=== PATIENT | female | born 1970 | race Caucasian/White ===

== ENCOUNTER 2018-06-13 07:18 | Day surgery (SDC) | payer BC ==
--- NOTE | 2018-06-08 15:49 | RAD REPORT ---
EXAM DESCRIPTION: RAD - Chest Pa And Lat (2 Views) - 06/08/2018 3:42 pm CLINICAL HISTORY: Preop chest, pending cardiac catheterization COMPARISON: February 2016 TECHNIQUE: PA and lateral views of the chest were obtained. FINDINGS: The lungs are clear of an acute process. No failure or volume overload. Lung markings are similar to comparison. Heart size is normal and central vasculature is within normal limits. No ple ural effusion or pneumothorax seen. No acute bony finding noted. No aortic abnormality. IMPRESSION: No acute cardiopulmonary process. No significant interval change.
[2018-06-08 16:35] LABS: Absolute Lymphocytes (CBC) 1.8 K/uL (0.7-4.9); Absolute Monocytes 0.4 K/uL (0.1-1.3); Absolute Neutrophil 2.2 K/uL (1.8-8.0); Basophils % 2.6 % (0-1.3); Eosinophils % 1.6 % (0-4.4); Hematocrit 40.8 % (36.0-45.0); Lymphocytes % 39.4 % (15.3-44.8); MPV 7.8 fL (7.6-11.3); Monocytes % 8.5 % (3.3-12.3); RBC Red Blood Cell Count 4.49 M/uL (3.86-4.86)
[2018-06-08 16:40] LABS: Protime INR 0.9
[2018-06-08 16:52] LABS: Potassium 3.9 mmol/L (3.5-5.1)
--- OUTSIDE RECORDS SUMMARY | 2018-06-13 07:20 | XMS REPORT ---
:1970 Author Organization eClinicalWorks Care Team Providers Name Role Phone [facility] Provider Role Unavailable Allergies No Known Allergies Problems Problem Type Condition Code Onset Dates Condition Status Problem Current moderate episode of major F32.1 Active depressive disorder without prior episode Problem Seasonal allergic rhinitis, J30.2 Active unspecified trigger Problem H/O abnormal cervical Papanicolaou Z87.898 Active smear Problem Memory changes R41.3 Active Problem Anxiety F41.9 Active Problem Psoriasis L40.9 Active Medications No Known Medications Results No Known Results Summary Purpose eClinicalWorks Submission
--- OUTSIDE RECORDS SUMMARY | 2018-06-13 07:20 | XMS REPORT ---
:1970 Author Organization [employer] Care Team Providers Name Role Phone WilcoxAryh Provider Role Unavailable Allergies No Known Allergies Problems Problem Type Condition Code Onset Dates Condition Status Assessment Seasonal allergic rhinitis, J30.2 Active unspecified trigger Assessment Psoriasis L40.9 Active Problem Psoriasis L40.9 Active Problem Memory changes R41.3 Active Problem Anxiety F41.9 Active Assessment Current moderate episode of major F32.1 Active depressive disorder without prior episode Assessment Anxiety F41.9 Active Problem Current moderate episode of major F32.1 Active depressive disorder without prior episode Problem Seasonal allergic rhinitis, J30.2 Active unspecified trigger Medications Medication Code Code Instructions Start End Status Dosage System Date Date Escitalopram [facility] 01609937603 20 MG Orally Active 1 tablet Oxalate Once a day BusPIRone HCl [facility] 00765073286 5 MG Orally Active 1 tablet Twice a day Results No Known Results Summary Purpose eClinicalWorks Submission
--- OUTSIDE RECORDS SUMMARY | 2018-06-13 07:20 | XMS REPORT ---
:1970 Author Organization eClinicalWorks Care Team Providers Name Role Phone Judy Feliciano Provider Role Unavailable Allergies, Adverse Reactions, Alerts Substance Reaction Event Type Gabapentin Info Not Available Drug Allergy Cyclobenzaprine HCl Info Not Available Drug Allergy Ciprofloxacin sweating Drug Allergy Baclofen itching,dizzy Drug Allergy Problems Problem Type Condition Code Onset Dates Condition Status Assessment H/O abnormal cervical Papanicolaou Z87.898 Active smear Assessment Yeast dermatitis B37.2 Active Problem Current moderate episode of major F32.1 Active depressive disorder without prior episode Problem Seasonal allergic rhinitis, J30.2 Active unspecified trigger Problem H/O abnormal cervical Papanicolaou Z87.898 Active smear Problem Memory changes R41.3 Active Assessment Routine gynecological examination Z01.419 Active Problem Anxiety F41.9 Active Problem Psoriasis L40.9 Active Medications Medication Code Code Instructions Start End Status Dosage System Date Date Escitalopram [facility] 08081496944 20 MG Orally Active 1 tablet Oxalate Once a day BusPIRone HCl [facility] 91378139152 5 MG Orally Active 1 tablet Twice a day Results No Known Results Summary Purpose eClinicalWorks Submission
--- OUTSIDE RECORDS SUMMARY | 2018-06-13 07:20 | XMS REPORT ---
:1970 Author Organization eClinicalWorks Care Team Providers Name Role Phone Bryce Wilcox Provider Role Unavailable Allergies No Known Allergies Problems Problem Type Condition Code Onset Dates Condition Status Assessment Current moderate episode of major F32.1 Active depressive disorder without prior episode Problem Current moderate episode of major F32.1 Active depressive disorder without prior episode Problem Seasonal allergic rhinitis, J30.2 Active unspecified trigger Problem H/O abnormal cervical Papanicolaou Z87.898 Active smear Problem Memory changes R41.3 Active Problem Anxiety F41.9 Active Problem Psoriasis L40.9 Active Medications Medication Code Code Instructions Start End Status Dosage System Date Date Escitalopram [facility] 47131966038 20 MG Orally Active 1 tablet Oxalate Once a day Results No Known Results Summary Purpose eClinicalWorks Submission
[2018-06-13] MEDS ORDERED: NA CHLORIDE 0.9% 500 ML ONE (07:56)
[2018-06-13] MEDS ORDERED: ATROPINE SULF 1 MG/10 ML SYR IV ONE (09:02)
[2018-06-13] MEDS ORDERED: HEPA 1000U/500MLS 1,000 UNIT/500 ML BAG IV ONE (09:02)
[2018-06-13] MEDS ORDERED: MIDAZOLAM HCL 2 MG/2 ML INJ ONE ×2 (09:02→09:12)
[2018-06-13] MEDS ORDERED: FENTANYL CITR 100 MCG/2 ML ONE (09:02)
[2018-06-13] MEDS ORDERED: NA CHLORIDE 0.9% 0 ML ONE (09:02)
[2018-06-13] MEDS ORDERED: LIDOCAINE 1% MPF 30 ML VIAL ONE (09:02)
[2018-06-13 11:41] VITALS: BP 112/63; TEMP 98; O2SAT 100
--- NOTE | 2018-06-13 12:22 | OP ---
Date of Procedure: 06/13/2018 Surgeon: Aravind Strickland MD Chief Digital Officer: Roel Daugherty. Total conscious sedation was 30 minutes. Procedure: Left heart catheterization and selective coronary arteriogram. Indication: Abnormal stress test and chest pain. Ms. Quiros is 48. Had chest pain, positive stress test. Admitted today as an outpatient to the [facility]. Prepped and draped in the routine sterile fashion. Given 2 mg of Versed and 50 mg of fenta nyl for IV sedation. 6-Bahraini sheath introduced in the right common femoral artery. Angiography the re was normal. Angio-Seal was used to close the case. 6-B[place]raini Erika catheter was used to cannula te the coronary artery, left main and right main. She had normal coronaries. No significant atheros clerosis. 6-[place]i sheath catheters were used. No complications. Blood Loss: 5 cc. Postoperative Diagnoses: Abnormal Cardiolite. Normal coronaries. Plan: Plan is to continue medical therapy. She will go home after 2 hours of bedrest. I will see h er in the office in 2 weeks. ION/SYLVIA Voice ID: [id number] Report ID: [id number]
== END 2018-06-13 11:35 | disposition home or self-care (01) ==
LOC: CCL 07:18
DX: R94.39 Abnormal result of other cardiovascular function study (principal); F41.9 Anxiety disorder, unspecified; Z82.49 Family history of ischemic heart disease and other diseases of the circulatory system; Z87.891 Personal history of nicotine dependence; Z79.899 Other long term (current) drug therapy
CPT/HCPCS: 36415; 71046; 80048; 84703; 85025; 85610; 85730; 93454; C1760; C1893; J0583; J2250; J3010

== ENCOUNTER 2020-10-06 08:06 | Day surgery (SDC) | payer BC ==
[2020-10-06 08:24] LABS: Specific Gravity <= 1.005 (1.005-1.030)
[2020-10-06] MEDS ORDERED: Ringers Lactate 1,000 ML IV ONE (08:50)
[2020-10-06] MEDS ORDERED: propofoL 200 MG/20 ML VIAL IV ONE ×3 (09:12→09:33)
[2020-10-06] MEDS ORDERED: LIDOCAINE 1% MPF 5 ML VIAL ONE (09:12)
[2020-10-06] MEDS ORDERED: MIDAZOLAM HCL 2 MG/2 ML INJ ONE (09:34)
[2020-10-06 10:24] VITALS: TEMP 97.6
[2020-10-06 10:25] VITALS: BP 102/56; O2SAT 100
== END 2020-10-06 10:20 | disposition home or self-care (01) ==
LOC: OR 08:06
PROVIDERS: ATTEND Surgery
PROC: 0DJD8ZZ Inspection of Lower Intestinal Tract, Via Natural or Artificial Opening Endoscopic (ICD-10-PCS; principal; 2020-10-06 09:15)
DX: K57.30 Diverticulosis of large intestine without perforation or abscess without bleeding (principal); F41.9 Anxiety disorder, unspecified; L40.9 Psoriasis, unspecified; K64.4 Residual hemorrhoidal skin tags; K64.8 Other hemorrhoids; Z20.822 Contact with and (suspected) exposure to COVID-19
CPT/HCPCS: 36415; 84703; 81025; 45378; U0003 ×2; J2704 ×3; J2250; J7120

== ENCOUNTER → 2023-07-11 | Emergency (ER) | payer OTHER, BC ==
[~2023-07-11] MED LIST: ACETAMINOPHEN 500 MG TAB ONE; IBUPROFEN 400 MG TAB ONE
--- OUTSIDE RECORDS SUMMARY | 2023-07-11 20:00 | XMS REPORT | Continuity of Care Document ---
Author Name Unknown Address [address] [place] [address] [facility] Address [address] [facility] [address] [place] [address] Care Team Providers Care Stock Buyer Name Role Phone Bryce Wilcox Attending Clinician Unavailable [email or web address] Attending Clinician Unavaila ble [email or web address] Admitting Clinician Unavaila ble Payers Payer Name Policy Type Policy Number Effective Date Expirati on Date Source [place] [id number] 2017 00:00:00 [facility] 6 [id number] 2017 00:00:00 [facility] Problems Condition Name Condition Details Condition Category Status Onset Date Resolution Date Last Treatment Date Treating Clinician Comments Source History of loop electrosur gical excision procedure History of Loop Electrosur gical Excision Procedure Problem Active 08-02 00:00: 00 [facility] [id number] Body mass index [BMI] 31.0-31.9, adult Problem [facility] [id number] Grieving Problem Commo n [facility] [id number] Other obesity due to excess calories Problem [facility] [id number] Panic attack Problem Common [facility] [id number] Leukopenia , unspecifie d type Problem [facility] [id number] Seasonal allergic rhinitis, unspecifie d trigger Problem [facility] [id number] Psoriasis, unspecifie d Problem [facility] [id number] Current moderate episode of major depressive disorder without prior episode Problem [facility] [id number] Memory changes Problem [facility] [id number] Anxiety Problem [facility] [id number] Mixed hyperlipid emia Problem [facility] [id number] Non-season al allergic rhinitis, unspecifie d trigger Problem [facility] 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, cervical region Problem [facility] [id number] Bilateral hearing loss, unspecifie d hearing loss type Problem [facility] [id number] JOHN (obstructi ve sleep apnea) Problem [facility] [id number] H/O abnormal cervical Papanicola ou smear Problem [facility] Osteophyte of bone Osteophyte of vertebrae Problem [facility] [id number] Daytime somnolence Problem [facility] [id number] Repetitive intrusions of sleep Problem [facility] Hearing loss Hearing loss, bilateral Problem [facility] Allergies, Adverse Reactions, Alerts Allergy Name Allergy Type Status Severity Reaction(s) Onset Date Inactive Date Treating Clinician Comments Source baclofen baclofen Active itching,dizz y [facility] cycloben zaprine cycloben zaprine Active breathing difficulty [facility] 9041 Drug allergy Active sweating [facility] gabapent in gabapent in Active breathing difficulty [facility] Social History Social Habit Start Date Stop Date Quantity Comments Source History of Tobacco Use [facility] Sex Assigned At [facility] Smoking Status Start Date Stop Date Source Never Smoker [facility] Former Smoker 2023-03-23 00:00:00 2023-03-23 00:00:00 [facility] Medications Ordered Medication Name Filled Medication Name Start Date Stop Date Current Medication? Ordering Clinician Indication Dosage Frequency Signature (SIG) Comments Components Source ALPRAZolam 0.25 MG ALPRAZolam 0.25 MG 2022-06 0- 00:00: 00 No 1{table t} ALPRAZolam 0.25 MG ALPRAZolam 0.25 MG ALPRAZolam 0.25 MG 2022-06 0 00:00: 00 No 1{table t} ALPRAZolam 0.25 MG ALPRAZolam 0.25 MG ALPRAZolam 0.25 MG 2022-06 0 00:00: 00 No 1{table t} ALPRAZolam 0.25 MG ALPRAZolam 0.25 MG ALPRAZolam 0.25 MG 2022-06 0 00:00: 00 No 1{table t} ALPRAZolam 0.25 MG ALPRAZolam 0.25 MG ALPRAZolam 0.25 MG 07-26 00:00: 00 No 1{table t} ALPRAZolam 0.25 MG Kenalog (Triamcinol one) Kenalog (Triamcinol one) 2021-06 0-04 00:00: 00 No 40mg [facility] Kenalog (Triamcinol one) Kenalog (Triamcinol one) 2021-06 0-04 00:00: 00 No 40mg [facility] Kenalog (Triamcinol one) Kenalog (Triamcinol one) 2021-06 0-04 00:00: 00 No 40mg [facility] Kenalog (Triamcinol one) Kenalog (Triamcinol one) 2021-06 0-04 00:00: 00 No 40mg [facility] Kenalog (Triamcinol one) Kenalog (Triamcinol one) 2021-06 0-04 00:00: 00 No 40mg [facility] Kenalog (Triamcinol one) Kenalog (Triamcinol one) 2021-06 0-04 00:00: 00 No 40mg [facility] Kenalog (Triamcinol one) Kenalog (Triamcinol one) 2021-06 0-04 00:00: 00 No [facility]mg [facility] Kenalog (Triamcinol one) Kenalog (Triamcinol one) 2021-06 0-04 00:00: 00 No 40mg Common [facility] Kenalog (Triamcinol one) Kenalog (Triamcinol one) 2021-06 0-04 00:00: 00 No 40mg Common [facility] Kenalog (Triamcinol one) Kenalog (Triamcinol one) 2021-06 0-04 00:00: 00 No 40mg [facility] Kenalog (Triamcinol one) Kenalog (Triamcinol one) 2021-06 0-04 00:00: 00 No 40mg [facility] Kenalog (Triamcinol one) Kenalog (Triamcinol one) 2021-06 0-04 00:00: 00 No 40mg Common [facility] Kenalog (Triamcinol one) Kenalog (Triamcinol one) 2021-06 0-04 00:00: 00 No 40mg [facility] ALPRAZolam 0.25 MG ALPRAZolam 0.25 MG 815 00:00: 00 No 1{table t} ALPRAZolam 0.25 MG ALPRAZolam 0.25 MG ALPRAZolam 0.25 MG 8 00:00: 00 No 1{table t} ALPRAZolam 0.25 MG Macrobid 100 MG Macrobid 100 MG 2020-06 0-12 00:00: 00 04-12 00:00 :00 No BID Macrobid 100 MG Macrobid 100 MG Macrobid 100 MG 2020-06 0-12 00:00: 00 04-12 00:00 :00 No BID Macrobid 100 MG Lorazepam Lorazepam 2018-06 00:00: 00 Yes Bryce Wilcox 1 tablet prior to MRI [facility] LORazepam 1 MG LORazepam 1 MG 2018-06 00:00: 00 No QD LORazepam 1 MG LORazepam 1 MG LORazepam 1 MG 2018-06 00:00: 00 No QD LORazepam 1 MG LORazepam 1 MG LORazepam 1 MG 2018-06 00:00: 00 No QD LORazepam 1 MG LORazepam 1 MG LORazepam 1 MG 2018-06 00:00: 00 No QD LORazepam 1 MG LORazepam 1 MG 2018-06 00:00: 00 No QD LORazepam 1 MG LORazepam 1 MG LORazepam 1 MG 2018-06 00:00: 00 No QD LORazepam 1 MG LORazepam 1 MG LORazepam 1 MG 2018-06 00:00: 00 No QD LORazepam 1 MG LORazepam 1 MG LORazepam 1 MG 2018-06 00:00: 00 No QD LORazepam 1 MG LORazepam 1 MG LORazepam 1 MG 2018-06 00:00: 00 No QD LORazepam 1 MG LORazepam 1 MG LORazepam 1 MG 2018-06 00:00: 00 No QD LORazepam 1 MG LORazepam 1 MG LORazepam 1 MG 2018-06 00:00: 00 No QD LORazepam 1 MG LORazepam 1 MG LORazepam 1 MG 2018-06 00:00: 00 No QD LORazepam 1 MG LORazepam 1 MG LORazepam 1 MG 2018-06 00:00: 00 No QD LORazepam 1 MG LORazepam 1 MG LORazepam 1 MG 2018-06 00:00: 00 No QD LORazepam 1 MG LORazepam 1 MG LORazepam 1 MG 2018-06 00:00: 00 No QD LORazepam 1 MG LORazepam 1 MG LORazepam 1 MG 2018-06 00:00: 00 No QD LORazepam 1 MG LORazepam 1 MG LORazepam 1 MG 2018-06 00:00: 00 No QD LORazepam 1 MG LORazepam 1 MG LORazepam 1 MG 2018-06 00:00: 00 No QD LORazepam 1 MG LORazepam 1 MG LORazepam 1 MG 2018-06 00:00: 00 No QD LORazepam 1 MG LORazepam 1 MG LORazepam 1 MG 2018-06 00:00: 00 No QD LORazepam 1 MG LORazepam 1 MG LORazepam 1 MG 2018-06 00:00: 00 No QD LORazepam 1 MG LORazepam 1 MG LORazepam 1 MG 2018-06 00:00: 00 No QD LORazepam 1 MG LORazepam 1 MG LORazepam 1 MG 2018-06 00:00: 00 No QD LORazepam 1 MG LORazepam 1 MG LORazepam 1 MG 2018-06 00:00: 00 No QD LORazepam 1 MG Kenalog (Triamcinol one) Kenalog (Triamcinol one) 2018-06 00:00: 00 No 40mg [facility] Kenalog (Triamcinol one) Kenalog (Triamcinol one) 2018-06 00:00: 00 No 40mg [facility] Kenalog (Triamcinol one) Kenalog (Triamcinol one) 2018-06 00:00: 00 No 40mg [facility] Kenalog (Triamcinol one) Kenalog (Triamcinol one) 2018-06 00:00: 00 No 40mg [facility] Kenalog (Triamcinol one) Kenalog (Triamcinol one) 2018-06 00:00: 00 No 40mg [facility] Kenalog (Triamcinol one) Kenalog (Triamcinol one) 2018-06 00:00: 00 No 40mg [facility] Kenalog (Triamcinol one) Kenalog (Triamcinol one) 2018-06 0 00:00: 00 No 40mg [facility] Kenalog (Triamcinol one) Kenalog (Triamcinol one) 2018-06 00:00: 00 No 40mg [facility] Kenalog (Triamcinol one) Kenalog (Triamcinol one) 2018-06 00:00: 00 No 40mg [facility] Kenalog (Triamcinol one) Kenalog (Triamcinol one) 2018-06 0 00:00: 00 No 40mg [facility] Kenalog (Triamcinol one) Kenalog (Triamcinol one) 2018-06 00:00: 00 No 40mg [facility] Kenalog (Triamcinol one) Kenalog (Triamcinol one) 2018-06 00:00: 00 No 40mg [facility] Kenalog (Triamcinol one) Kenalog (Triamcinol one) 2018-06 00:00: 00 No 40mg [facility] Kenalog (Triamcinol one) Kenalog (Triamcinol one) 2018-06 00:00: 00 No 40mg [facility] Kenalog (Triamcinol one) Kenalog (Triamcinol one) 2018-06 00:00: 00 No 40mg [facility] Kenalog (Triamcinol one) Kenalog (Triamcinol one) 2018-06 00:00: 00 No 40mg [facility] Kenalog (Triamcinol one) Kenalog (Triamcinol one) 2018-06 00:00: 00 No 40mg [facility] Kenalog (Triamcinol one) Kenalog (Triamcinol one) 2018-06 00:00: 00 No 40mg [facility] Kenalog (Triamcinol one) Kenalog (Triamcinol one) 2018-06 00:00: 00 No 40mg [facility] Humira Humira Yes Bryce Wilcox as directed [facility] Escitalopra m Oxalate Escitalopra m Oxalate Yes Bryce Wilcox 1 tablet [facility] Azithromyci n Azithromyci n No Azithromyc in Humira 10 MG/0.2ML Humira 10 MG/0.2ML No Humira 10 MG/0.2ML Fluzone Quadrivalen t Fluzone Quadrivalen t No Fluzone Quadrivale nt Fluocinonid e Fluocinonid e No Fluocinoni de busPIRone HCl 10 MG busPIRone HCl 10 MG No 1{table t} BID busPIRone HCl 10 MG Escitalopra m Oxalate 20 MG Escitalopra m Oxalate 20 MG No 1{table t} QD Escitalopr am Oxalate 20 MG Doxycycline Hyclate Doxycycline Hyclate No Doxycyclin e Hyclate Doxycycline Hyclate Doxycycline Hyclate No Doxycyclin e Hyclate Escitalopra m Oxalate 20 MG Escitalopra m Oxalate 20 MG No 1{table t} QD Escitalopr am Oxalate 20 MG busPIRone HCl 10 MG busPIRone HCl 10 MG No 1{table t} BID busPIRone HCl 10 MG Fluzone Quadrivalen t Fluzone Quadrivalen t No Fluzone Quadrivale nt Azithromyci n Azithromyci n No Azithromyc in Fluocinonid e Fluocinonid e No Fluocinoni de Humira 10 MG/0.2ML Humira 10 MG/0.2ML No Humira 10 MG/0.2ML Doxycycline Hyclate Doxycycline Hyclate No Doxycyclin e Hyclate Escitalopra m Oxalate 20 MG Escitalopra m Oxalate 20 MG No 1{table t} QD Escitalopr am Oxalate 20 MG busPIRone HCl 10 MG busPIRone HCl 10 MG No 1{table t} BID busPIRone HCl 10 MG Fluzone Quadrivalen t Fluzone Quadrivalen t No Fluzone Quadrivale nt Azithromyci n Azithromyci n No Azithromyc in Fluocinonid e Fluocinonid e No Fluocinoni de Humira 10 MG/0.2ML Humira 10 MG/0.2ML No Humira 10 MG/0.2ML Doxycycline Hyclate Doxycycline Hyclate No Humira 10 MG/0.2ML Humira 10 MG/0.2ML No Escitalopra m Oxalate 20 MG Escitalopra m Oxalate 20 MG No 1{table t} QD Fluzone Quadrivalen t Fluzone Quadrivalen t No Azithromyci n Azithromyci n No Fluocinonid e Fluocinonid e No busPIRone HCl 10 MG busPIRone HCl 10 MG No 1{table t} BID Fluzone Quadrivalen t Fluzone Quadrivalen t No Fluzone Quadrivale nt Fluocinonid e Fluocinonid e No Fluocinoni de Humira 10 MG/0.2ML Humira 10 MG/0.2ML No Humira 10 MG/0.2ML Doxycycline Hyclate Doxycycline Hyclate No Doxycyclin e Hyclate Escitalopra m Oxalate 20 MG Escitalopra m Oxalate 20 MG No 1{table t} QD Escitalopr am Oxalate 20 MG Azithromyci n Azithromyci n No Azithromyc in busPIRone HCl 10 MG busPIRone HCl 10 MG No 1{table t} BID busPIRone HCl 10 MG Azithromyci n Azithromyci n No Azithromyc in Fluocinonid e Fluocinonid e No Fluocinoni de Benzonatate 200 MG Benzonatate 200 MG No 1{capsu le} TID Benzonatat e 200 MG Humira 10 MG/0.2ML Humira 10 MG/0.2ML No Humira 10 MG/0.2ML Escitalopra m Oxalate 20 MG Escitalopra m Oxalate 20 MG No 1{table t} QD Escitalopr am Oxalate 20 MG Fluzone Quadrivalen t Fluzone Quadrivalen t No Fluzone Quadrivale nt Doxycycline Hyclate Doxycycline Hyclate No Doxycyclin e Hyclate Azithromyci n 250 MG Azithromyci n 250 MG No QD Azithromyc in 250 MG busPIRone HCl 10 MG busPIRone HCl 10 MG No 1{table t} BID busPIRone HCl 10 MG Azithromyci n Azithromyci n No Azithromyc in Fluocinonid e Fluocinonid e No Fluocinoni de Benzonatate 200 MG Benzonatate 200 MG No 1{capsu le} TID Benzonatat e 200 MG Humira 10 MG/0.2ML Humira 10 MG/0.2ML No Humira 10 MG/0.2ML Escitalopra m Oxalate 20 MG Escitalopra m Oxalate 20 MG No 1{table t} QD Escitalopr am Oxalate 20 MG Fluzone Quadrivalen t Fluzone Quadrivalen t No Fluzone Quadrivale nt Doxycycline Hyclate Doxycycline Hyclate No Doxycyclin e Hyclate Azithromyci n 250 MG Azithromyci n 250 MG No QD Azithromyc in 250 MG busPIRone HCl 10 MG busPIRone HCl 10 MG No 1{table t} BID busPIRone HCl 10 MG Humira 10 MG/0.2ML Humira 10 MG/0.2ML No Humira 10 MG/0.2ML Benzonatate 200 MG Benzonatate 200 MG No 1{capsu le} TID Benzonatat e 200 MG Fluocinonid e Fluocinonid e No Fluocinoni de Azithromyci n 250 MG Azithromyci n 250 MG No QD Azithromyc in 250 MG Escitalopra m Oxalate 20 MG Escitalopra m Oxalate 20 MG No 1{table t} QD Escitalopr am Oxalate 20 MG Doxycycline Hyclate Doxycycline Hyclate No Doxycyclin e Hyclate Azithromyci n Azithromyci n No Azithromyc in busPIRone HCl 10 MG busPIRone HCl 10 MG No 1{table t} BID busPIRone HCl 10 MG Fluzone Quadrivalen t Fluzone Quadrivalen t No Fluzone Quadrivale nt Humira 10 MG/0.2ML Humira 10 MG/0.2ML No Humira 10 MG/0.2ML Benzonatate 200 MG Benzonatate 200 MG No 1{capsu le} TID Benzonatat e 200 MG Fluocinonid e Fluocinonid e No Fluocinoni de Azithromyci n 250 MG Azithromyci n 250 MG No QD Azithromyc in 250 MG Escitalopra m Oxalate 20 MG Escitalopra m Oxalate 20 MG No 1{table t} QD Escitalopr am Oxalate 20 MG Doxycycline Hyclate Doxycycline Hyclate No Doxycyclin e Hyclate Azithromyci n Azithromyci n No Azithromyc in busPIRone HCl 10 MG busPIRone HCl 10 MG No 1{table t} BID busPIRone HCl 10 MG Fluzone Quadrivalen t Fluzone Quadrivalen t No Fluzone Quadrivale nt Humira 10 MG/0.2ML Humira 10 MG/0.2ML No Humira 10 MG/0.2ML Benzonatate 200 MG Benzonatate 200 MG No 1{capsu le} TID Benzonatat e 200 MG Fluocinonid e Fluocinonid e No Fluocinoni de Azithromyci n 250 MG Azithromyci n 250 MG No QD Azithromyc in 250 MG Escitalopra m Oxalate 20 MG Escitalopra m Oxalate 20 MG No 1{table t} QD Escitalopr am Oxalate 20 MG Doxycycline Hyclate Doxycycline Hyclate No Doxycyclin e Hyclate Azithromyci n Azithromyci n No Azithromyc in busPIRone HCl 10 MG busPIRone HCl 10 MG No 1{table t} BID busPIRone HCl 10 MG Fluzone Quadrivalen t Fluzone Quadrivalen t No Fluzone Quadrivale nt busPIRone HCl 10 MG busPIRone HCl 10 MG No 1{table t} BID busPIRone HCl 10 MG Fluocinonid e Fluocinonid e No Fluocinoni de Azithromyci n 250 MG Azithromyci n 250 MG No QD Azithromyc in 250 MG Benzonatate 200 MG Benzonatate 200 MG No 1{capsu le} TID Benzonatat e 200 MG Humira 10 MG/0.2ML Humira 10 MG/0.2ML No Humira 10 MG/0.2ML Doxycycline Hyclate Doxycycline Hyclate No Doxycyclin e Hyclate Escitalopra m Oxalate 20 MG Escitalopra m Oxalate 20 MG No Escitalopr am Oxalate 20 MG Escitalopra m Oxalate 20 MG Escitalopra m Oxalate 20 MG No 1{table t} QD Escitalopr am Oxalate 20 MG Azithromyci n Azithromyci n No Azithromyc in Fluzone Quadrivalen t Fluzone Quadrivalen t No Fluzone Quadrivale nt Humira 10 MG/0.2ML Humira 10 MG/0.2ML No Humira 10 MG/0.2ML Benzonatate 200 MG Benzonatate 200 MG No 1{capsu le} TID Benzonatat e 200 MG Escitalopra m Oxalate 20 MG Escitalopra m Oxalate 20 MG No 2{table t} QD Escitalopr am Oxalate 20 MG Escitalopra m Oxalate 20 MG Escitalopra m Oxalate 20 MG No Escitalopr am Oxalate 20 MG Fluocinonid e Fluocinonid e No Fluocinoni de Fluzone Quadrivalen t Fluzone Quadrivalen t No Fluzone Quadrivale nt ALPRAZolam 0.25 MG ALPRAZolam 0.25 MG No 1{table t} ALPRAZolam 0.25 MG Doxycycline Hyclate Doxycycline Hyclate No Doxycyclin e Hyclate busPIRone HCl 10 MG busPIRone HCl 10 MG No 1{table t} BID busPIRone HCl 10 MG Azithromyci n Azithromyci n No Azithromyc in Azithromyci n 250 MG Azithromyci n 250 MG No QD Azithromyc in 250 MG Humira 10 MG/0.2ML Humira 10 MG/0.2ML No Humira 10 MG/0.2ML Benzonatate 200 MG Benzonatate 200 MG No 1{capsu le} TID Benzonatat e 200 MG Escitalopra m Oxalate 20 MG Escitalopra m Oxalate 20 MG No 2{table t} QD Escitalopr am Oxalate 20 MG Escitalopra m Oxalate 20 MG Escitalopra m Oxalate 20 MG No Escitalopr am Oxalate 20 MG Fluocinonid e Fluocinonid e No Fluocinoni de Fluzone Quadrivalen t Fluzone Quadrivalen t No Fluzone Quadrivale nt ALPRAZolam 0.25 MG ALPRAZolam 0.25 MG No 1{table t} ALPRAZolam 0.25 MG Doxycycline Hyclate Doxycycline Hyclate No Doxycyclin e Hyclate busPIRone HCl 10 MG busPIRone HCl 10 MG No 1{table t} BID busPIRone HCl 10 MG Azithromyci n Azithromyci n No Azithromyc in Azithromyci n 250 MG Azithromyci n 250 MG No QD Azithromyc in 250 MG ALPRAZolam 0.25 MG ALPRAZolam 0.25 MG No 1{table t} ALPRAZolam 0.25 MG Humira 10 MG/0.2ML Humira 10 MG/0.2ML No Humira 10 MG/0.2ML Escitalopra m Oxalate 20 MG Escitalopra m Oxalate 20 MG No 1{table t} QD Escitalopr am Oxalate 20 MG Benzonatate 200 MG Benzonatate 200 MG No 1{capsu le} TID Benzonatat e 200 MG Fluocinonid e Fluocinonid e No Fluocinoni de Fluzone Quadrivalen t Fluzone Quadrivalen t No Fluzone Quadrivale nt Azithromyci n 250 MG Azithromyci n 250 MG No QD Azithromyc in 250 MG Doxycycline Hyclate Doxycycline Hyclate No Doxycyclin e Hyclate ALPRAZolam 0.25 MG ALPRAZolam 0.25 MG No 1{table t} ALPRAZolam 0.25 MG Azithromyci n Azithromyci n No Azithromyc in Escitalopra m Oxalate 20 MG Escitalopra m Oxalate 20 MG No Escitalopr am Oxalate 20 MG busPIRone HCl 10 MG busPIRone HCl 10 MG No 1{table t} BID busPIRone HCl 10 MG ALPRAZolam 0.25 MG ALPRAZolam 0.25 MG No 1{table t} ALPRAZolam 0.25 MG Humira 10 MG/0.2ML Humira 10 MG/0.2ML No Humira 10 MG/0.2ML Escitalopra m Oxalate 20 MG Escitalopra m Oxalate 20 MG No 1{table t} QD Escitalopr am Oxalate 20 MG Benzonatate 200 MG Benzonatate 200 MG No 1{capsu le} TID Benzonatat e 200 MG Fluocinonid e Fluocinonid e No Fluocinoni de Fluzone Quadrivalen t Fluzone Quadrivalen t No Fluzone Quadrivale nt Azithromyci n 250 MG Azithromyci n 250 MG No QD Azithromyc in 250 MG Doxycycline Hyclate Doxycycline Hyclate No Doxycyclin e Hyclate ALPRAZolam 0.25 MG ALPRAZolam 0.25 MG No 1{table t} ALPRAZolam 0.25 MG Azithromyci n Azithromyci n No Azithromyc in Escitalopra m Oxalate 20 MG Escitalopra m Oxalate 20 MG No Escitalopr am Oxalate 20 MG busPIRone HCl 10 MG busPIRone HCl 10 MG No 1{table t} BID busPIRone HCl 10 MG ALPRAZolam 0.25 MG ALPRAZolam 0.25 MG No 1{table t} ALPRAZolam 0.25 MG Fluzone Quadrivalen t Fluzone Quadrivalen t No Fluzone Quadrivale nt ALPRAZolam 0.25 MG ALPRAZolam 0.25 MG No 1{table t} ALPRAZolam 0.25 MG Azithromyci n 250 MG Azithromyci n 250 MG No QD Azithromyc in 250 MG Doxycycline Hyclate Doxycycline Hyclate No Doxycyclin e Hyclate Escitalopra m Oxalate 20 MG Escitalopra m Oxalate 20 MG No 1{table t} QD Escitalopr am Oxalate 20 MG Azithromyci n Azithromyci n No Azithromyc in busPIRone HCl 10 MG busPIRone HCl 10 MG No 1{table t} BID busPIRone HCl 10 MG Escitalopra m Oxalate 20 MG Escitalopra m Oxalate 20 MG No Escitalopr am Oxalate 20 MG Humira 10 MG/0.2ML Humira 10 MG/0.2ML No Humira 10 MG/0.2ML Benzonatate 200 MG Benzonatate 200 MG No 1{capsu le} TID Benzonatat e 200 MG Fluocinonid e Fluocinonid e No Fluocinoni de Humira 10 MG/0.2ML Humira 10 MG/0.2ML No Humira 10 MG/0.2ML ALPRAZolam 0.25 MG ALPRAZolam 0.25 MG No 1{table t} ALPRAZolam 0.25 MG Benzonatate 200 MG Benzonatate 200 MG No 1{capsu le} TID Benzonatat e 200 MG Azithromyci n 250 MG Azithromyci n 250 MG No QD Azithromyc in 250 MG ALPRAZolam 0.25 MG ALPRAZolam 0.25 MG No 1{table t} ALPRAZolam 0.25 MG Doxycycline Hyclate Doxycycline Hyclate No Doxycyclin e Hyclate Escitalopra m Oxalate 20 MG Escitalopra m Oxalate 20 MG No 1{table t} QD Escitalopr am Oxalate 20 MG busPIRone HCl 10 MG busPIRone HCl 10 MG No 1{table t} BID busPIRone HCl 10 MG Fluocinonid e Fluocinonid e No Fluocinoni de Azithromyci n Azithromyci n No Azithromyc in Fluzone Quadrivalen t Fluzone Quadrivalen t No Fluzone Quadrivale nt Escitalopra m Oxalate 20 MG Escitalopra m Oxalate 20 MG No Escitalopr am Oxalate 20 MG Humira 10 MG/0.2ML Humira 10 MG/0.2ML No Humira 10 MG/0.2ML ALPRAZolam 0.25 MG ALPRAZolam 0.25 MG No 1{table t} ALPRAZolam 0.25 MG Benzonatate 200 MG Benzonatate 200 MG No 1{capsu le} TID Benzonatat e 200 MG Azithromyci n 250 MG Azithromyci n 250 MG No QD Azithromyc in 250 MG ALPRAZolam 0.25 MG ALPRAZolam 0.25 MG No 1{table t} ALPRAZolam 0.25 MG Doxycycline Hyclate Doxycycline Hyclate No Doxycyclin e Hyclate Escitalopra m Oxalate 20 MG Escitalopra m Oxalate 20 MG No 1{table t} QD Escitalopr am Oxalate 20 MG busPIRone HCl 10 MG busPIRone HCl 10 MG No 1{table t} BID busPIRone HCl 10 MG Fluocinonid e Fluocinonid e No Fluocinoni de Azithromyci n Azithromyci n No Azithromyc in Fluzone Quadrivalen t Fluzone Quadrivalen t No Fluzone Quadrivale nt Escitalopra m Oxalate 20 MG Escitalopra m Oxalate 20 MG No Escitalopr am Oxalate 20 MG Humira 10 MG/0.2ML Humira 10 MG/0.2ML No Humira 10 MG/0.2ML ALPRAZolam 0.25 MG ALPRAZolam 0.25 MG No 1{table t} ALPRAZolam 0.25 MG Benzonatate 200 MG Benzonatate 200 MG No 1{capsu le} TID Benzonatat e 200 MG Azithromyci n 250 MG Azithromyci n 250 MG No QD Azithromyc in 250 MG ALPRAZolam 0.25 MG ALPRAZolam 0.25 MG No 1{table t} ALPRAZolam 0.25 MG Doxycycline Hyclate Doxycycline Hyclate No Doxycyclin e Hyclate Escitalopra m Oxalate 20 MG Escitalopra m Oxalate 20 MG No 1{table t} QD Escitalopr am Oxalate 20 MG busPIRone HCl 10 MG busPIRone HCl 10 MG No 1{table t} BID busPIRone HCl 10 MG Fluocinonid e Fluocinonid e No Fluocinoni de Azithromyci n Azithromyci n No Azithromyc in Fluzone Quadrivalen t Fluzone Quadrivalen t No Fluzone Quadrivale nt Escitalopra m Oxalate 20 MG Escitalopra m Oxalate 20 MG No Escitalopr am Oxalate 20 MG Azithromyci n 250 MG Azithromyci n 250 MG No QD Azithromyc in 250 MG Benzonatate 200 MG Benzonatate 200 MG No 1{capsu le} TID Benzonatat e 200 MG Azithromyci n Azithromyci n No Azithromyc in Fluzone Quadrivalen t Fluzone Quadrivalen t No Fluzone Quadrivale nt Humira 10 MG/0.2ML Humira 10 MG/0.2ML No Humira 10 MG/0.2ML ALPRAZolam 0.25 MG ALPRAZolam 0.25 MG No 1{table t} ALPRAZolam 0.25 MG Escitalopra m Oxalate 20 MG Escitalopra m Oxalate 20 MG No 1{table t} QD Escitalopr am Oxalate 20 MG ALPRAZolam 0.25 MG ALPRAZolam 0.25 MG No 1{table t} ALPRAZolam 0.25 MG Fluocinonid e Fluocinonid e No Fluocinoni de Escitalopra m Oxalate 20 MG Escitalopra m Oxalate 20 MG No 1{table t} QD Escitalopr am Oxalate 20 MG Doxycycline Hyclate Doxycycline Hyclate No Doxycyclin e Hyclate busPIRone HCl 15 MG busPIRone HCl 15 MG No busPIRone HCl 15 MG Azithromyci n 250 MG Azithromyci n 250 MG No QD Azithromyc in 250 MG Benzonatate 200 MG Benzonatate 200 MG No 1{capsu le} TID Benzonatat e 200 MG Azithromyci n Azithromyci n No Azithromyc in Fluzone Quadrivalen t Fluzone Quadrivalen t No Fluzone Quadrivale nt Humira 10 MG/0.2ML Humira 10 MG/0.2ML No Humira 10 MG/0.2ML ALPRAZolam 0.25 MG ALPRAZolam 0.25 MG No 1{table t} ALPRAZolam 0.25 MG Escitalopra m Oxalate 20 MG Escitalopra m Oxalate 20 MG No 1{table t} QD Escitalopr am Oxalate 20 MG ALPRAZolam 0.25 MG ALPRAZolam 0.25 MG No 1{table t} ALPRAZolam 0.25 MG Fluocinonid e Fluocinonid e No Fluocinoni de Escitalopra m Oxalate 20 MG Escitalopra m Oxalate 20 MG No 1{table t} QD Escitalopr am Oxalate 20 MG Doxycycline Hyclate Doxycycline Hyclate No Doxycyclin e Hyclate busPIRone HCl 15 MG busPIRone HCl 15 MG No busPIRone HCl 15 MG Azithromyci n 250 MG Azithromyci n 250 MG No QD Azithromyc in 250 MG Benzonatate 200 MG Benzonatate 200 MG No 1{capsu le} TID Benzonatat e 200 MG Azithromyci n Azithromyci n No Azithromyc in Fluzone Quadrivalen t Fluzone Quadrivalen t No Fluzone Quadrivale nt Humira 10 MG/0.2ML Humira 10 MG/0.2ML No Humira 10 MG/0.2ML ALPRAZolam 0.25 MG ALPRAZolam 0.25 MG No 1{table t} ALPRAZolam 0.25 MG Escitalopra m Oxalate 20 MG Escitalopra m Oxalate 20 MG No 1{table t} QD Escitalopr am Oxalate 20 MG ALPRAZolam 0.25 MG ALPRAZolam 0.25 MG No 1{table t} ALPRAZolam 0.25 MG Fluocinonid e Fluocinonid e No Fluocinoni de Escitalopra m Oxalate 20 MG Escitalopra m Oxalate 20 MG No 1{table t} QD Escitalopr am Oxalate 20 MG Doxycycline Hyclate Doxycycline Hyclate No Doxycyclin e Hyclate busPIRone HCl 15 MG busPIRone HCl 15 MG No busPIRone HCl 15 MG Humira 10 MG/0.2ML Humira 10 MG/0.2ML No Humira 10 MG/0.2ML Escitalopra m Oxalate 20 MG Escitalopra m Oxalate 20 MG No 1{table t} QD Escitalopr am Oxalate 20 MG ALPRAZolam 0.25 MG ALPRAZolam 0.25 MG No 1{table t} ALPRAZolam 0.25 MG Fluocinonid e Fluocinonid e No Fluocinoni de Fluzone Quadrivalen t Fluzone Quadrivalen t No Fluzone Quadrivale nt Azithromyci n 250 MG Azithromyci n 250 MG No QD Azithromyc in 250 MG ALPRAZolam 0.25 MG ALPRAZolam 0.25 MG No 1{table t} ALPRAZolam 0.25 MG Azithromyci n Azithromyci n No Azithromyc in Doxycycline Hyclate Doxycycline Hyclate No Doxycyclin e Hyclate Escitalopra m Oxalate 20 MG Escitalopra m Oxalate 20 MG No 1{table t} QD Escitalopr am Oxalate 20 MG Benzonatate 200 MG Benzonatate 200 MG No 1{capsu le} TID Benzonatat e 200 MG Humira 10 MG/0.2ML Humira 10 MG/0.2ML No Humira 10 MG/0.2ML Escitalopra m Oxalate 20 MG Escitalopra m Oxalate 20 MG No 1{table t} QD Escitalopr am Oxalate 20 MG ALPRAZolam 0.25 MG ALPRAZolam 0.25 MG No 1{table t} ALPRAZolam 0.25 MG Fluocinonid e Fluocinonid e No Fluocinoni de Fluzone Quadrivalen t Fluzone Quadrivalen t No Fluzone Quadrivale nt Azithromyci n 250 MG Azithromyci n 250 MG No QD Azithromyc in 250 MG Escitalopra m Oxalate 20 MG Escitalopra m Oxalate 20 MG No 1{table t} QD Escitalopr am Oxalate 20 MG Azithromyci n Azithromyci n No Azithromyc in Doxycycline Hyclate Doxycycline Hyclate No Doxycyclin e Hyclate Benzonatate 200 MG Benzonatate 200 MG No 1{capsu le} TID Benzonatat e 200 MG Humira 10 MG/0.2ML Humira 10 MG/0.2ML No Humira 10 MG/0.2ML Escitalopra m Oxalate 20 MG Escitalopra m Oxalate 20 MG No 1{table t} QD Escitalopr am Oxalate 20 MG ALPRAZolam 0.25 MG ALPRAZolam 0.25 MG No 1{table t} ALPRAZolam 0.25 MG Escitalopra m Oxalate 20 MG Escitalopra m Oxalate 20 MG No 1{table t} QD Escitalopr am Oxalate 20 MG Skyrizi Skyrizi No Skyrizi Escitalopra m Oxalate 20 MG Escitalopra m Oxalate 20 MG No 1{table t} QD Escitalopr am Oxalate 20 MG Skyrizi Skyrizi No Skyrizi Escitalopra m Oxalate 20 MG Escitalopra m Oxalate 20 MG No 1{table t} QD Escitalopr am Oxalate 20 MG Skyrizi Skyrizi No Skyrizi Escitalopra m Oxalate 20 MG Escitalopra m Oxalate 20 MG No 1{table t} QD Escitalopr am Oxalate 20 MG Skyrizi Skyrizi No Skyrizi Immunizations Ordered Immunization Name Filled Immunization Name Date Status Comments Source Flucelvax - single dose syringe Flucelvax - single dose syringe 2021-06-03 08:25:00 [facility] Flucelvax - single dose syringe Flucelvax - single dose syringe 2021-06-03 08:25:00 [facility] Flucelvax - single dose syringe Flucelvax - single dose syringe 2021-06-03 08:25:00 [facility] Flucelvax - single dose syringe Flucelvax - single dose syringe 2021-06-03 08:25:00 [facility] Flucelvax - single dose syringe Flucelvax - single dose syringe 2021-06-03 08:25:00 Completed [facility] Flucelvax - single dose syringe Flucelvax - single dose syringe 2021-06-03 08:25:00 Completed [facility] Flucelvax - single dose syringe Flucelvax - single dose syringe 2021-06-03 08:25:00 Completed [facility] Flucelvax - single dose syringe Flucelvax - single dose syringe 2021-06-03 08:25:00 Completed [facility] Flucelvax - single dose syringe Flucelvax - single dose syringe 2021-06-03 08:25:00 Completed [facility] Flucelvax - single dose syringe Flucelvax - single dose syringe 2021-06-03 08:25:00 Completed [facility] Flucelvax - single dose syringe Flucelvax - single dose syringe 2021-06-03 08:25:00 Completed [facility] Flucelvax - single dose syringe Flucelvax - single dose syringe 2021-06-03 08:25:00 Completed [facility] Flucelvax - single dose syringe Flucelvax - single dose syringe 2021-06-03 08:25:00 Completed [facility] Flucelvax - single dose syringe Flucelvax - single dose syringe 2021-06-03 08:25:00 Completed [facility] Flucelvax - single dose syringe Flucelvax - single dose syringe 2021-06-03 08:25:00 Completed [facility] Flucelvax - single dose syringe Flucelvax - single dose syringe 2021-06-03 08:25:00 Completed [facility] Flucelvax - single dose syringe Flucelvax - single dose syringe 2021-06-03 08:25:00 Completed [facility] Flucelvax - single dose syringe Flucelvax - single dose syringe 2021-06-03 08:25:00 Completed [facility] Flucelvax - single dose syringe Flucelvax - single dose syringe 2021-06-03 08:25:00 Completed [facility] Flucelvax - single dose syringe Flucelvax - single dose syringe 2021-06-03 08:25:00 Completed [facility] Flucelvax - single dose syringe Flucelvax - single dose syringe 2021-06-03 08:25:00 Completed [facility] Pfizer COVID-19 Vaccine Pfizer COVID-19 Vaccine 2021-04-29 15:40:00 Completed [facility] Pfizer COVID-19 Vaccine Pfizer COVID-19 Vaccine 2021-04-29 15:40:00 Completed [facility] Pfizer COVID-19 Vaccine Pfizer COVID-19 Vaccine 2021-04-29 15:40:00 Completed [facility] Pfizer COVID-19 Vaccine Pfizer COVID-19 Vaccine 2021-04-29 15:40:00 Completed [facility] Pfizer COVID-19 Vaccine Pfizer COVID-19 Vaccine 2021-04-29 15:40:00 Completed [facility] Pfizer COVID-19 Vaccine Pfizer COVID-19 Vaccine 2021-04-29 15:40:00 Completed [facility] Pfizer COVID-19 Vaccine Pfizer COVID-19 Vaccine 2021-04-29 15:40:00 Completed [facility] Pfizer COVID-19 Vaccine Pfizer COVID-19 Vaccine 2021-04-29 15:40:00 Completed [facility] Pfizer COVID-19 Vaccine Pfizer COVID-19 Vaccine 2021-04-29 15:40:00 Completed [facility] Pfizer COVID-19 Vaccine Pfizer COVID-19 Vaccine 2021-04-29 15:40:00 Completed [facility] Pfizer COVID-19 Vaccine Pfizer COVID-19 Vaccine 2021-04-29 15:40:00 Completed [facility] Pfizer COVID-19 Vaccine Pfizer COVID-19 Vaccine 2021-04-29 15:40:00 Completed [facility] Pfizer COVID-19 Vaccine Pfizer COVID-19 Vaccine 2021-04-29 15:40:00 Completed [facility] Pfizer COVID-19 Vaccine Pfizer COVID-19 Vaccine 2021-04-29 15:40:00 Completed [facility] Pfizer COVID-19 Vaccine Pfizer COVID-19 Vaccine 2021-04-29 15:40:00 Completed [facility] Pfizer COVID-19 Vaccine Pfizer COVID-19 Vaccine 2021-04-29 15:40:00 Completed [facility] Pfizer COVID-19 Vaccine Pfizer COVID-19 Vaccine 2021-04-29 15:40:00 Completed [facility] Pfizer COVID-19 Vaccine Pfizer COVID-19 Vaccine 2021-04-29 15:40:00 Completed [facility] Pfizer COVID-19 Vaccine Pfizer COVID-19 Vaccine 2021-04-29 15:40:00 Completed [facility] Pfizer COVID-19 Vaccine Pfizer COVID-19 Vaccine 2021-04-29 15:40:00 Completed [facility] Pfizer COVID-19 Vaccine Pfizer COVID-19 Vaccine 2021-04-29 15:40:00 Completed [facility] Pfizer COVID-19 Vaccine Pfizer COVID-19 Vaccine 2021-04-29 15:40:00 Completed [facility] COVID-19 Vaccine (Damaso) COVID-19 Vaccine (Damaso) 2020-09-11 09:21:00 Completed [facility] COVID-19 Vaccine (Damaso) COVID-19 Vaccine (Damaso) 2020-09-11 09:21:00 Completed [facility] COVID-19 Vaccine (Damaso) COVID-19 Vaccine (Damaso) 2020-09-11 09:21:00 Completed [facility] COVID-19 Vaccine (Damaso) COVID-19 Vaccine (Damaso) 2020-09-11 09:21:00 Completed [facility] COVID-19 Vaccine (Damaso) COVID-19 Vaccine (Damaso) 2020-09-11 09:21:00 Completed [facility] COVID-19 Vaccine (Damaso) COVID-19 Vaccine (Damaso) 2020-09-11 09:21:00 Completed [facility] COVID-19 Vaccine (Damaso) COVID-19 Vaccine (Damaso) 2020-09-11 09:21:00 Completed [facility] COVID-19 Vaccine (Damaso) COVID-19 Vaccine (Damaso) 2020-09-11 09:21:00 Completed [facility] COVID-19 Vaccine (Damaso) COVID-19 Vaccine (Damaso) 2020-09-11 09:21:00 Completed [facility] COVID-19 Vaccine (Damaso) COVID-19 Vaccine (Damaso) 2020-09-11 09:21:00 Completed [facility] COVID-19 Vaccine (Damaso) COVID-19 Vaccine (Damaso) 2020-09-11 09:21:00 Completed [facility] COVID-19 Vaccine (Damaso) COVID-19 Vaccine (Damaso) 2020-09-11 09:21:00 Completed [facility] COVID-19 Vaccine (Damaso) COVID-19 Vaccine (Damaso) 2020-09-11 09:21:00 Completed [facility] COVID-19 Vaccine (Damaso) COVID-19 Vaccine (Damaso) 2020-09-11 09:21:00 Completed [facility] COVID-19 Vaccine (Damaso) COVID-19 Vaccine (Damaso) 2020-09-11 09:21:00 Completed [facility] COVID-19 Vaccine (Damaso) COVID-19 Vaccine (Damaso) 2020-09-11 09:21:00 Completed [facility] COVID-19 Vaccine (Damaso) COVID-19 Vaccine (Damaso) 2020-09-11 09:21:00 Completed [facility] COVID-19 Vaccine (Damaso) COVID-19 Vaccine (Damaso) 2020-09-11 09:21:00 Completed [facility] COVID-19 Vaccine (Damaso) COVID-19 Vaccine (Dmaaso) 2020-09-11 09:21:00 Completed [facility] COVID-19 Vaccine (Damaso) COVID-19 Vaccine (Damaso) 2020-09-11 09:21:00 Completed [facility] COVID-19 Vaccine (Dmaaso) COVID-19 Vaccine (Damaso) 2020-09-11 09:21:00 Completed [facility] COVID-19 Vaccine (Damaso) COVID-19 Vaccine (Damaso) 2020-09-11 09:21:00 Completed [facility] COVID-19 Vaccine (Damaso) COVID-19 Vaccine (Damaso) 2020-09-11 09:21:00 Completed [facility] COVID-19 Vaccine (Damaso) COVID-19 Vaccine (Damaso) 2020-09-11 09:21:00 Completed [facility] COVID-19 Vaccine (Damaso) COVID-19 Vaccine (Damaso) 2020-09-11 09:21:00 Completed [facility] Kenalog (Triamcinolone) Kenalog (Triamcinolone) 2019-04-04 08:30:00 Completed [facility] Kenalog (Triamcinolone) Kenalog (Triamcinolone) 2019-04-04 08:30:00 Completed [facility] Kenalog (Triamcinolone) Kenalog (Triamcinolone) 2019-04-04 08:30:00 Completed [facility] Afluria Afluria 2019-02-28 16:57:00 Completed [facility] Afluria Afluria 2019-02-28 16:57:00 Completed [facility] Afluria Afluria 2019-02-28 16:57:00 Completed [facility] Afluria Afluria 2019-02-28 16:57:00 Completed [facility] Afluria Afluria 2019-02-28 16:57:00 Completed [facility] Afluria Afluria 2019-02-28 16:57:00 Completed [facility] Afluria Afluria 2019-02-28 16:57:00 Completed [facility] Afluria Afluria 2019-02-28 16:57:00 Completed [facility] Afluria Afluria 2019-02-28 16:57:00 Completed [facility] Afluria Afluria 2019-02-28 16:57:00 Completed [facility] Afluria Afluria 2019-02-28 16:57:00 Completed [facility] Afluria Afluria 2019-02-28 16:57:00 Completed [facility] Afluria Afluria 2019-02-28 16:57:00 Completed [facility] Afluria Afluria 2019-02-28 16:57:00 Completed [facility] Afluria Afluria 2019-02-28 16:57:00 Completed [facility] Afluria Afluria 2019-02-28 16:57:00 Completed [facility] Afluria Afluria 2019-02-28 16:57:00 Completed [facility] Afluria Afluria 2019-02-28 16:57:00 Completed [facility] Afluria Afluria 2019-02-28 16:57:00 Completed [facility] Afluria Afluria 2019-02-28 16:57:00 Completed [facility] Afluria Afluria 2019-02-28 16:57:00 Completed [facility] Afluria Afluria 2019-02-28 16:57:00 Completed [facility] Afluria Afluria 2019-02-28 16:57:00 Completed [facility] Afluria Afluria 2019-02-28 16:57:00 Completed [facility] Afluria Afluria 2019-02-28 16:57:00 Completed [facility] Afluria Afluria 2019-02-28 00:00:00 Completed [facility] Boostrix (Tdap) Boostrix (Tdap) 2018-11-28 16:16:00 Completed [facility] Boostrix (Tdap) Boostrix (Tdap) 2018-11-28 16:16:00 Completed [facility] Boostrix (Tdap) Boostrix (Tdap) 2018-11-28 16:16:00 Completed [facility] Boostrix (Tdap) Boostrix (Tdap) 2018-11-28 16:16:00 Completed [facility] Boostrix (Tdap) Boostrix (Tdap) 2018-11-28 16:16:00 Completed [facility] Boostrix (Tdap) Boostrix (Tdap) 2018-11-28 16:16:00 Completed [facility] Boostrix (Tdap) Boostrix (Tdap) 2018-11-28 16:16:00 Completed [facility] Boostrix (Tdap) Boostrix (Tdap) 2018-11-28 16:16:00 Completed [facility] Boostrix (Tdap) Boostrix (Tdap) 2018-11-28 16:16:00 Completed [facility] Boostrix (Tdap) Boostrix (Tdap) 2018-11-28 16:16:00 Completed [facility] Boostrix (Tdap) Boostrix (Tdap) 2018-11-28 16:16:00 Completed [facility] Boostrix (Tdap) Boostrix (Tdap) 2018-11-28 16:16:00 Completed [facility] Boostrix (Tdap) Boostrix (Tdap) 2018-11-28 16:16:00 Completed [facility] Boostrix (Tdap) Boostrix (Tdap) 2018-11-28 16:16:00 Completed [facility] Boostrix (Tdap) Boostrix (Tdap) 2018-11-28 16:16:00 Completed [facility] Boostrix (Tdap) Boostrix (Tdap) 2018-11-28 16:16:00 Completed [facility] Boostrix (Tdap) Boostrix (Tdap) 2018-11-28 16:16:00 Completed [facility] Boostrix (Tdap) Boostrix (Tdap) 2018-11-28 16:16:00 Completed [facility] Boostrix (Tdap) Boostrix (Tdap) 2018-11-28 16:16:00 Completed [facility] Boostrix (Tdap) Boostrix (Tdap) 2018-11-28 16:16:00 Completed [facility] Boostrix (Tdap) Boostrix (Tdap) 2018-11-28 16:16:00 Completed [facility] Boostrix (Tdap) Boostrix (Tdap) 2018-11-28 16:16:00 Completed [facility] Boostrix (Tdap) Boostrix (Tdap) 2018-11-28 16:16:00 Completed [facility] Boostrix (Tdap) Boostrix (Tdap) 2018-11-28 16:16:00 Completed [facility] Boostrix (Tdap) Boostrix (Tdap) 2018-11-28 16:16:00 Completed [facility] FluAD FluAD 2018-05-22 09:43:00 Completed [facility] FluAD FluAD 2018-05-22 09:43:00 Completed [facility] FluAD FluAD 2018-05-22 09:43:00 Completed [facility] FluAD FluAD 2018-05-22 09:43:00 Completed [facility] FluAD FluAD 2018-05-22 09:43:00 Completed [facility] FluAD FluAD 2018-05-22 09:43:00 Completed [facility] FluAD FluAD 2018-05-22 09:43:00 Completed [facility] FluAD FluAD 2018-05-22 09:43:00 Completed [facility] FluAD FluAD 2018-05-22 09:43:00 Completed [facility] FluAD FluAD 2018-05-22 09:43:00 Completed [facility] FluAD FluAD 2018-05-22 09:43:00 Completed [facility] FluAD FluAD 2018-05-22 09:43:00 Completed [facility] FluAD FluAD 2018-05-22 09:43:00 Completed [facility] FluAD FluAD 2018-05-22 09:43:00 Completed [facility] FluAD FluAD 2018-05-22 09:43:00 Completed [facility] FluAD FluAD 2018-05-22 09:43:00 Completed [facility] FluAD FluAD 2018-05-22 09:43:00 Completed [facility] FluAD FluAD 2018-05-22 09:43:00 Completed [facility] FluAD FluAD 2018-05-22 09:43:00 Completed [facility] FluAD FluAD 2018-05-22 09:43:00 Completed [facility] FluAD FluAD 2018-05-22 09:43:00 Completed [facility] FluAD FluAD 2018-05-22 09:43:00 Completed [facility] FluAD FluAD 2018-05-22 09:43:00 Completed [facility] FluAD FluAD 2018-05-22 09:43:00 Completed [facility] FluAD FluAD 2018-05-22 09:43:00 Completed [facility] COVID-19 Vaccine (Damaso) COVID-19 Vaccine (Damaso) Unknown Completed [facility] Pfizer COVID-19 Vaccine Pfizer COVID-19 Vaccine Unknown Completed [facility] Fluarix Fluarix Unknown Completed [facility] FluAD FluAD Unknown Completed [facility] Afluria Afluria Unknown Completed [facility] Flucelvax - single dose syringe Flucelvax - single dose syringe Unknown Completed [facility] Boostrix (Tdap) Boostrix (Tdap) Unknown Completed [facility] COVID-19 Vaccine (Damaso) COVID-19 Vaccine (Damaso) Unknown Completed [facility] Pfizer COVID-19 Vaccine Pfizer COVID-19 Vaccine Unknown Completed [facility] Fluarix (IIV4) - SDS - 0.5mL Fluarix (IIV4) - SDS - 0.5mL Unknown Completed [facility] FluAD FluAD Unknown Completed [facility] Afluria Afluria Unknown Completed [facility] Flucelvax (ccIIV4) - SDS - 0.5mL Flucelvax (ccIIV4) - SDS - 0.5mL Unknown Completed [facility] Boostrix (Tdap) Boostrix (Tdap) Unknown Completed [facility] COVID-19 Vaccine (Damaso) COVID-19 Vaccine (Damaso) Unknown Completed [facility] Pfizer COVID-19 Vaccine Pfizer COVID-19 Vaccine Unknown Completed [facility] Fluarix (IIV4) - SDS - 0.5mL Fluarix (IIV4) - SDS - 0.5mL Unknown Completed [facility] FluAD FluAD Unknown Completed [facility] Afluria Afluria Unknown Completed [facility] Flucelvax (ccIIV4) - SDS - 0.5mL Flucelvax (ccIIV4) - SDS - 0.5mL Unknown Completed [facility] Boostrix (Tdap) Boostrix (Tdap) Unknown Completed [facility] COVID-19 Vaccine (Damaso) COVID-19 Vaccine (Damaso) Unknown Completed [facility] Pfizer COVID-19 Vaccine Pfizer COVID-19 Vaccine Unknown Completed [facility] Fluarix (IIV4) - SDS - 0.5mL Fluarix (IIV4) - SDS - 0.5mL Unknown Completed [facility] FluAD FluAD Unknown Completed [facility] [place] [place] [facility] Afluria Afluria Unknown Completed [facility] [place] [place] [facility] Flucelvax (ccIIV4) - SDS - 0.5mL Flucelvax (ccIIV4) - SDS - 0.5mL Unknown Completed [facility] Boostrix (Tdap) Boostrix (Tdap) Unknown Completed [facility] Vital Signs Vital Name Observation Time Observation Value Comments S loriece height 2023-04-04 08:00:00 67 [in_i] Commo n [facility] weight 2023-04-04 08:00:00 171.0 [lb_av] Co [facility] temperature 2023-04-04 08:00:00 97.9 [degF] Com [facility] bmi 2023-04-04 08:00:00 26.78 kg/m2 Comm on [facility] oximetry 2023-04-04 08:00:00 96 % Commo n [facility] respiratory rate 2023-04-04 08:00:00 18 /min [facility] blood pressure systolic 2023-04-04 08:00:00 134 mm[Hg] [facility] blood pressure diastolic 2023-04-04 08:00:00 70 mm[Hg] [facility] height 2023-03-07 08:00:00 67 [in_i] Commo n [facility] weight 2023-03-07 08:00:00 170[facility]0 [facility] 08:00:00 98.3 [degF] Com mon [facility] bmi 2023-03-07 08:00:00 26.62 kg/m2 Comm on [facility] oximetry 2023-03-07 08:00:00 98 % Commo n [facility] respiratory rate 2023-03-07 08:00:00 18 /min [facility] blood pressure systolic 2023-03-07 08:00:00 121 mm[Hg] [facility] blood pressure diastolic 2023-03-07 08:00:00 74 mm[Hg] [facility] height 2022-09-08 16:40:00 67 [in_i] Commo n [facility] weight 2022-09-08 16:40:00 178 [lb_av] Comm on [facility] bmi 2022-09-08 16:40:00 27.88 kg/m2 Comm on [facility] blood pressure systolic 2022-09-08 16:40:00 130 mm[Hg] [facility] blood pressure diastolic 2022-09-08 16:40:00 72 mm[Hg] [facility] height 2022-06-10 08:00:00 67 [in_i] Commo n [facility] weight 2022-06-10 08:00:00 182 [lb_av] Comm on [facility] temperature 2022-06-10 08:00:00 98 [degF] Comm on [facility] bmi 2022-06-10 08:00:00 28.5 kg/m2 Commo n [facility] blood pressure systolic 2022-06-10 08:00:00 135 mm[Hg] [facility] blood pressure diastolic 2022-06-10 08:00:00 76 mm[Hg] [facility] height 2022-05-11 08:50:00 67 [in_i] Commo n [facility] weight 2022-05-11 08:50:00 182.3 [lb_av] Co mmon [facility] temperature 2022-05-11 08:50:00 98.5 [degF] Com mon [facility] bmi 2022-05-11 08:50:00 28.55 kg/m2 Comm on [facility] oximetry 2022-05-11 08:50:00 99 % Commo n [facility] respiratory rate 2022-05-11 08:50:00 16 /min [facility] blood pressure systolic 2022-05-11 08:50:00 139 mm[Hg] Common [facility] blood pressure diastolic 2022-05-11 08:50:00 76 mm[Hg] [facility] BP Diastolic 2022-05-05 00:00:00 84 mm[Hg] [facility] Height 2022-05-05 00:00:00 67 [in_i] [facility] Systolic 2022-05-05 00:00:00 145 mm[Hg] [facility] Weight 2022-05-05 00:00:00 178 [lb_av] [facility] height 2022-03-30 09:50:00 67 [in_i] Commo n [facility] weight 2022-03-30 09:50:00 185.2 [lb_av] Co mmon [facility] temperature 2022-03-30 09:50:00 97.3 [degF] Com mon [facility] bmi 2022-03-30 09:50:00 29 kg/m2 Commo n [facility] oximetry 2022-03-30 09:50:00 99 % Commo n [facility] respiratory rate 2022-03-30 09:50:00 18 /min [facility] blood pressure systolic 2022-03-30 09:50:00 133 mm[Hg] Common [facility] blood pressure diastolic 2022-03-30 09:50:00 72 mm[Hg] Common [facility] height 2022-02-26 09:20:00 67 [in_i] Commo n [facility] weight 2022-02-26 09:20:00 189.3 [lb_av] Co on [facility] temperature 2022-02-26 09:20:00 97.7 [degF] Com [facility] bmi 2022-02-26 09:20:00 29.65 kg/m2 Comm on [facility] oximetry 2022-02-26 09:20:00 99 % Commo n [facility] respiratory rate 2022-02-26 09:20:00 18 /min Common [facility] blood pressure systolic 2022-02-26 09:20:00 115 mm[Hg] [facility] [facility] diastolic 2022-02-26 09:20:00 71 mm[Hg] [facility] height 2022-02-08 14:20:00 67 [in_i] Commo n [facility] weight 2022-02-08 14:20:00 189.4 [lb_av] Co [facility] temperature 2022-02-08 14:20:00 98.4 [degF] Com [facility] bmi 2022-02-08 14:20:00 29.66 kg/m2 Comm on [facility] oximetry 2022-02-08 14:20:00 98 % Commo n [facility] respiratory rate 2022-02-08 14:20:00 18 /min Common [facility] blood pressure systolic 2022-02-08 14:20:00 131 mm[Hg] [facility] blood pressure diastolic 2022-02-08 14:20:00 75 mm[Hg] [facility] height 2022-01-07 15:50:00 67 [in_i] Commo n [facility] weight 2022-01-07 15:50:00 198.2 [lb_av] Co mmon [facility] temperature 2022-01-07 15:50:00 98.0 [degF] Com [facility] bmi 2022-01-07 15:50:00 31.04 kg/m2 Comm on [facility] oximetry 2022-01-07 15:50:00 97 % Commo n [facility] respiratory rate 2022-01-07 15:50:00 18 /min Common [facility] blood pressure systolic 2022-01-07 15:50:00 134 mm[Hg] [facility] blood pressure diastolic 2022-01-07 15:50:00 74 mm[Hg] Common [facility] height 2021-06-03 08:00:00 67 [in_i] Commo n [facility] weight 2021-06-03 08:00:00 199.6 [facility]av] [facility] 2021-06-03 08:00:00 97.9 [degF] Com [facility] bmi 2021-06-03 08:00:00 31.26 kg/m2 Comm on [facility] oximetry 2021-06-03 08:00:00 96 % Commo n [facility] respiratory rate 2021-06-03 08:00:00 16 /min Common [facility] blood pressure systolic 2021-06-03 08:00:00 132 mm[Hg] [facility] blood pressure diastolic 2021-06-03 08:00:00 70 mm[Hg] [facility] height 2021-04-07 08:10:00 67 [in_i] Commo n [facility] weight 2021-04-07 08:10:00 201.2 [lb_av] Co mmon [facility] temperature 2021-04-07 08:10:00 97.9 [degF] Com [facility] bmi 2021-04-07 08:10:00 31.51 kg/m2 Comm on [facility] oximetry 2021-04-07 08:10:00 97 % Commo n [facility] respiratory rate 2021-04-07 08:10:00 18 /min Common [facility] blood pressure systolic 2021-04-07 08:10:00 132 mm[Hg] Common [facility] blood pressure diastolic 2021-04-07 08:10:00 72 mm[Hg] [facility] height 2021-03-04 08:20:00 67 [in_i] Commo n [facility] weight 2021-03-04 08:20:00 198 [lb_av] Comm on [facility] temperature 2021-03-04 08:20:00 98 [degF] Comm on [facility] bmi 2021-03-04 08:20:00 31.01 kg/m2 Comm on [facility] blood pressure systolic 2021-03-04 08:20:00 125 mm[Hg] [facility] blood pressure diastolic 2021-03-04 08:20:00 73 mm[Hg] [facility] Procedures Procedure Date / Time Performed Performing Clinicia n Source MAMMO, screening, bilateral 2022-05-05 00:00:00 [facility] Medical BONE DENSITY MEASUREMENT USING DEDICATED X RAY MACHINE 2022-05-05 00:00:00 [facility] Medical Lee 2005-06-27 00:00:00 Jose Howard edical Plan of Care Planned Activity Planned Date Details Comments Source Diagnostic Test Pending 2022-05-05 00:00:00 [place] IgE Ab [Units/volume] in Serum [code = 6195-2] [facility] Test Pending 2022-05-05 00:00:00 Mucor racemosus IgE Ab [Units/volume] in Serum [code = 6182-0] [facility] Medical Encounters Start Date/Time End Date/Time Encounter Type Admission Type Attending Clinicians Care Facility Care Department Encounter ID Source 2022-09-06 13:34:01 Outpatient Wilcox, Bryce STLMLC STLMLC [id number] [facility] 2022-06-08 09:19:01 Outpatient Wilcox, Bryce STLMLC ST[facility]C [id number] [facility] 2022-05-14 12:18:00 Outpatient Wilcox, Bryce STLMLC STLMLC [id number] [facility] 2022-05-13 10:08:01 Outpatient Wilcox, Bryce STLMLC STLMLC [id number] [facility] 2022-05-07 09:17:00 Outpatient Wilcox, Bryce STLMLC STLMLC [id number] [facility] 2022-02-15 14:40:00 Outpatient Wilcox, Bryce STLMLC STLMLC [id number] [facility] 2022-02-08 08:24:00 Outpatient Wilcox, Bryce STLMLC STLMLC [id number] [facility] 2021-07-22 13:12:41 Outpatient Wilcox, Bryce STLMLC STLMLC [id number] [facility] 2021-07-22 13:12:15 Outpatient Wilcox, Bryce STLMLC STLMLC [id number] [facility] 2021-07-22 12:53:18 Outpatient Wilcox, Bryce STLMLC STLMLC [id number] [facility] 2021-07-22 12:49:19 Outpatient Wilcox, Bryce STLMLC STLMLC [id number] [facility] 2021-07-22 12:42:18 Outpatient Wilcox, Bryce STLMLC STLMLC [id number] [facility] 2021-07-22 12:41:34 Outpatient Wilcox, Bryce STLMLC STLMLC [id number] [facility] 2021-07-22 12:38:51 Outpatient Wilcox, Bryce STLMLC STLMLC [id number] [facility] 2021-07-22 12:37:56 Outpatient Wilcox, Bryce STLMLC STLMLC [id number] [facility] 2021-07-22 12:30:27 Outpatient Wilcox, Bryce STLMLC STLMLC [id number] [facility] 2021-07-22 12:29:54 Outpatient Wilcox, Bryce STLMLC STLMLC [id number] [facility] 2021-07-22 12:27:26 Outpatient Wilcox, Bryce STLMLC STLMLC [id number] [facility] 2021-07-22 12:26:36 Outpatient Wilcox, Bryce STLMLC STLMLC [id number] [facility] 2021-07-22 12:12:34 Outpatient Wilcox, Bryce STLMLC STLMLC [id number] [facility] 2021-07-22 11:13:59 Outpatient Wilcox, Bryce STLMLC STLMLC [id number] [facility] 2023-05-11 00:00:00 2023-05-11 00:00:00 Outpatient GC_SWSHARLAC_ Cooper_J PRIV PRIV [id number] [facility] 2023-05-07 00:00:00 2023-05-07 00:00:00 Outpatient GC_SWHAOMC_ Cooper_J PRIV PRIV [id number] [facility] 2023-04-08 00:00:00 2023-04-08 00:00:00 (TEL) STLMLC STLMLC [id number] [facility] 2023-04-04 00:00:00 2023-04-04 00:00:00 OFFICE VISIT ESTAB PT LEVEL 4 STLMLC STLMLC [id number] [facility] 2023-03-07 00:00:00 2023-03-07 00:00:00 PREV VISIT EST AGE 40-64 STLMLC STLMLC [id number] [facility] 2022-11-27 00:00:00 2022-11-27 00:00:00 Outpatient GC_TIARA_ Gaudencio_J [facility] PRIV [id number] [facility] 2022-09-08 00:00:00 2022-09-08 00:00:00 OFFICE VISIT ESTAB PT LEVEL 3 STLMLC STLMLC [id number] [facility] 2022-07-26 00:00:00 2022-07-26 00:00:00 (TEL) STLMLC STLMLC [id number] [facility] 2022-06-10 00:00:00 2022-06-10 00:00:00 OFFICE VISIT EST PT LEVEL 3 STLMLC STLMLC [id number] [facility] 2022-05-12 00:00:00 2022-05-12 00:00:00 (TEL) STLMLC STLMLC [id number] [facility] 2022-05-12 00:00:00 2022-05-12 00:00:00 (TEL) STLMLC STLMLC [id number] [facility] 2022-05-11 00:00:00 2022-05-11 00:00:00 OFFICE VISIT ESTAB PT LEVEL 4 STLMLC STLMLC [id number] [facility] 2022-05-05 00:00:00 2022-05-05 00:00:00 Vince Ratliff MD: [address] [place] [address] , Ph. [facility] [place] Office [id number] [facility] 2022-05-05 00:00:00 2022-05-05 00:00:00 (TEL) STLMLC STLMLC [id number] [facility] 2022-05-04 00:00:00 2022-05-04 00:00:00 Outpatient GC_TIARA_ Gaudencio_J [facility] [id number] [facility] 2022-04-16 00:00:00 2022-04-16 00:00:00 (TEL) STLMLC STLMLC [id number] [facility] 2022-04-12 00:00:00 2022-04-12 00:00:00 Outpatient GC_SWHAOMC_ Cooper_J [facility] [id number] [facility] 2022-03-30 00:00:00 2022-03-30 00:00:00 OFFICE VISIT ESTAB PT LEVEL 4 STLMLC STLMLC [id number] [facility] 2022-02-26 00:00:00 2022-02-26 00:00:00 OFFICE VISIT ESTAB PT LEVEL 4 STLMLC STLMLC [id number] [facility] 2022-02-25 00:00:00 2022-02-25 00:00:00 (TEL) STLMLC STLMLC [id number] [facility] 2022-02-08 00:00:00 2022-02-08 00:00:00 (TEL) STLMLC STLMLC [id number] [facility] 2022-02-08 00:00:00 2022-02-08 00:00:00 (TEL) STLMLC STLMLC [id number] [facility] 2022-02-08 00:00:00 2022-02-08 00:00:00 OFFICE VISIT ESTAB PT LEVEL 4 STLMLC STLMLC [id number] [facility] 2022-01-07 00:00:00 2022-01-07 00:00:00 PREV VISIT EST AGE 40-64 STLMLC STLMLC [id number] [facility] 2021-06-30 00:00:00 2021-06-30 00:00:00 (WEB) STLMLC STLMLC [id number] [facility] 2021-06-30 00:00:00 2021-06-30 00:00:00 OFFICE VISIT ESTAB PT LEVEL 1 STLMLC STLMLC [id number] [facility] 2021-06-30 00:00:00 2021-06-30 00:00:00 (TEL) STLMLC STLMLC [id number] [facility] 2021-06-17 00:00:00 2021-06-17 00:00:00 OFFICE VISIT EST PT LEVEL 3 STLMLC STLMLC [id number] [facility] 2021-06-17 00:00:00 2021-06-17 00:00:00 (TEL) STLMLC STLMLC [id number] [facility] 2021-06-03 00:00:00 2021-06-03 00:00:00 OFFICE VISIT ESTAB PT LEVEL 4 STLMLC STLMLC [id number] [facility] 2021-05-11 00:00:00 2021-05-11 00:00:00 (TEL) STLMLC STLMLC [id number] [facility] 2021-04-09 00:00:00 2021-04-09 00:00:00 (TEL) STLMLC STLMLC [id number] [facility] 2021-04-07 00:00:00 2021-04-07 00:00:00 OFFICE VISIT EST PT LEVEL 3 STLMLC STLMLC [id number] [facility] 2021-03-06 00:00:00 2021-03-06 00:00:00 (TEL) STLMLC STLMLC [id number] [facility] 2021-03-04 00:00:00 2021-03-04 00:00:00 OFFICE VISIT EST PT LEVEL 3 STLMLC STLMLC [id number] [facility] 2021-01-05 00:00:00 2021-01-05 00:00:00 Outpatient STLMLC STLMLC [id number] [facility] 2020-12-04 00:00:00 2020-12-04 00:00:00 Outpatient STLMLC STLMLC [id number] [facility] 2020-12-03 00:00:00 2020-12-03 00:00:00 Outpatient STLMLC STLMLC [id number] [facility] 2020-11-27 00:00:00 2020-11-27 00:00:00 Outpatient STLMLC STLMLC [id number] [facility] 2020-10-07 00:00:00 2020-10-07 00:00:00 Outpatient STLMLC STLMLC [id number] [facility] 2020-10-03 00:00:00 2020-10-03 00:00:00 Outpatient STLMLC STLMLC [id number] [facility] 2020-09-11 00:00:00 2020-09-11 00:00:00 Outpatient STLMLC STLMLC [id number] [facility] 2020-09-08 00:00:00 2020-09-08 00:00:00 Outpatient STLMLC STLMLC [id number] [facility] 2020-09-04 00:00:00 2020-09-04 00:00:00 Outpatient STLMLC STLMLC [id number] [facility] 2020-09-04 00:00:00 2020-09-04 00:00:00 Outpatient STLMLC STLMLC [id number] [facility] 2020-08-07 00:00:00 2020-08-07 00:00:00 Outpatient STLMLC STLMLC [id number] [facility] 2020-07-30 00:00:00 2020-07-30 00:00:00 Outpatient STLMLC STLMLC [id number] [facility] 2020-07-28 00:00:00 2020-07-28 00:00:00 Outpatient STLMLC STLMLC [id number] [facility] 2020-07-14 00:00:00 2020-07-14 00:00:00 Outpatient STLMLC STLMLC [id number] [facility] 2020-07-01 00:00:00 2020-07-01 00:00:00 Outpatient [facility]C [facility]C [id number] [facility] 2020-07-01 00:00:00 2020-07-01 00:00:00 Outpatient [facility]C [facility]C [id number] [facility] 2020-06-06 00:00:00 2020-06-06 00:00:00 Outpatient ST[facility]C [facility]C [id number] [facility] 2020-05-12 00:00:00 2020-05-12 00:00:00 Outpatient [facility]C [facility]C [id number] [facility] 2020-04-07 00:00:00 2020-04-07 00:00:00 Outpatient STLMLC STLMLC [id number] [facility] 2020-04-01 00:00:00 2020-04-01 00:00:00 Outpatient STLMLC STLMLC [id number] [facility] 2020-03-05 11:01:00 2020-03-05 11:01:[address] [facility] [id number] [facility] 2020-03-04 00:00:00 2020-03-04 00:00:00 Outpatient STLMLC STLMLC [id number] [facility] 2020-02-05 08:00:00 2020-02-05 08:00:[address] [facility] [id number] [facility] 2020-01-25 16:14:00 2020-01-25 16:14:[address] [facility] [id number] [facility] 2019-09-12 08:00:00 2019-09-12 08:00:[address] [facility] [id number] [facility] 2019-09-05 08:00:00 2019-09-05 08:00:[address] [facility] [id number] [facility] 2019-09-04 14:26:00 2019-09-04 14:26:[address] [facility] [id number] [facility] 2019-08-29 08:00:00 2019-08-29 08:00:00 [facility] [id number] [facility] 2019-08-22 08:00:00 2019-08-22 08:00:[address] [facility] [id number] [facility] 2019-08-15 08:00:00 2019-08-15 08:00:[address] [facility] [id number] [facility] 2019-08-08 08:00:00 2019-08-08 08:00:00 [facility] [id number] [facility] 2019-08-01 08:00:00 2019-08-01 08:00:[address] [facility] [facility] [id number] [facility] 2019-07-18 08:00:00 2019-07-18 08:00:00 [facility] [id number] [facility] 2019-07-11 08:00:00 2019-07-11 08:00:00 [facility] [id number] [facility] 2019-07-04 08:00:00 2019-07-04 08:00:00 [facility] [id number] [facility] 2019-06-14 08:00:00 2019-06-14 08:00:00 [facility] [id number] [facility] 2019-06-06 08:02:00 2019-06-06 08:02:[address] [facility] [facility] [id number] [facility] 2019-05-22 14:47:00 2019-05-22 14:47:00 [facility] [id number] [facility] 2019-05-21 09:10:00 2019-05-21 09:10:[address] [facility] [id number] [facility] 2019-05-16 14:32:00 2019-05-16 14:32:[address] [facility] [id number] [facility] 2019-05-16 08:45:00 2019-05-16 08:45:[address] [facility] [facility] [id number] [facility] 2019-05-08 08:15:00 2019-05-08 08:15:[address] [facility] [facility] [id number] [facility] 2019-04-04 08:45:00 2019-04-04 08:45:00 [facility] [id number] [facility] 2019-03-20 09:58:00 2019-03-20 09:58:00 [facility] [id number] [facility] 2019-03-01 16:29:00 2019-03-01 16:29:00 [facility] [id number] [facility] 2019-02-28 16:45:00 2019-02-28 16:45:00 [facility] [facility] [id number] [facility] 2018-10-13 15:09:00 2018-10-13 15:09:00 [facility] [id number] [facility] 2018-07-31 10:55:00 2018-07-31 10:55:00 Outpatient [facility] [id number] [facility] 2018-07-14 09:30:00 2018-07-14 09:30:00 Outpatient [facility] [id number] [facility] 2018-04-03 11:15:00 2018-04-03 11:15:00 [facility] [id number] [facility] 2018-03-09 10:12:00 2018-03-09 10:12:00 [facility] [id number] [facility] 2017-12-08 10:45:00 2017-12-08 10:45:00 Outpatient [facility] [id number] [facility] 2017-11-15 15:30:00 2017-11-15 15:30:00 Outpatient [facility] [id number] [facility] Results Test Description Test Time Test Comments Results Result Co mments Source HEMOGLOBIN [id number] 00:00:00* Test Item Value Reference Range Interpretation Comme nts HEMOGLOBIN A1c (test code = 4548-4) 5.3 % See_Comment [Automated [place] IZI-collect[employer]] The system which generated this result transmitted reference range: 4.2-5.6 %. The reference range was not used to interpret this result as normal/abnormal. TSH REFLEX TO FREE [id number] 00:00:00* Test Item Value Reference Range Interpretation Comme nts TSH REFLEX TO FREE T4 (test code = 15625-7) 0.750 UIU/ML See_Comment [Automated [place] [employer]] The system which generated this result transmitted reference range: 0.400-4.100 UIU/ML. The reference range was not used to interpret this result as normal/abnormal. HEPATITIS C [id number] 00:00:00* Test Item Value Reference Range Interpretation Comme nts HEPATITIS C ANTIBODY (test c ode = 34899-5) NON-REACTIVE NON-REACTIVE URINALYSIS (CULTURE IF INDICATED)2023-03-07 00:00:00* Test Item Value Reference Range Interpretation Comme nts APPEARANCE (test code = 5767-9) CLEAR CLEAR BILIRUBIN (test code = 5770-3) NEGATIVE NEGATIVE COLOR (test code = 5778-6) YELLOW YELLOW-STRAW GLUCOSE (test code = 5792-7) NEGATIVE NEGATIVE KETONES (test code = 5797-6) NEGATIVE NEGATIVE LEUKOCYTE ESTERASE (test code = 5799-2) NEGATIVE NEGATIVE NITRITE (test code = 5802-4) NEGATIVE NEGATIVE OCCULT BLOOD (test code = 09863-8) NEGATIVE NEGATIVE pH (test code = 5803-2) 7.5 5.0-9.0 PROTEIN (test code = 82909-9) NEGATIVE NEGATIVE SPECIFIC GRAVITY (test code = 5811-5) 1.004 1.005-1.035 L UROBILINOGEN (test code = 25859-5) 0.2 MG/DL See_Comment [Automated [place] ge] The system which generated this result transmitted reference range: <=2.0 MG/DL. The reference range was not used to interpret this result as normal/abnormal. LIPID PANEL WITH REFLEX DIRECT [id number] 00:00:00* Test Item Value Reference Range Interpretation Comme nts CALC LDL CHOL (test code = 23195-8) 88 MG/DL See_Comment [Automated [place]] The system which generated this result transmitted reference range: <100 MG/DL. The reference range was not used to interpret this result as normal/abnormal. CHOLESTEROL (test code = 2093-3) 209 MG/DL See_Comment H [Automated [place] [employer]] The system which generated this result transmitted reference range: <200 MG/DL. The reference range was not used to interpret this result as normal/abnormal. HDL CHOLESTEROL (test code = 2085-9) 103 MG/DL See_Comment [Automated [place]] The system which generated this result transmitted reference range: >39 MG/DL. The reference range was not used to interpret this result as normal/abnormal. RISK RATIO LDL/HDL (test code = 89986-5) 0.85 RATIO See_Comment [Automated message] The system which generated this result transmitted reference range: <3.22 RATIO. The reference range was not used to interpret this result as normal/abnormal. TRIGLYCERIDES (test code = 2571-8) 85 MG/DL See_Comment [Automated messa ge] The system which generated this result transmitted reference range: <150 MG/DL. The reference range was not used to interpret this result as normal/abnormal. COMPREHENSIVE METABOLIC [id number] 00:00:00* Test Item Value Reference Range Interpretation Comme nts ALBUMIN (test code = 1751-7) 4.8 G/DL See_Comment [Automated messa ge] The system which generated this result transmitted reference range: 3.5-5.2 G/DL. The reference range was not used to interpret this result as normal/abnormal. ALKALINE PHOSPHATASE (test code = 6768-6) 59 U/L See_Comment [Automated message] The system which generated this result transmitted reference range: 40-133 U/L. The reference range was not used to interpret this result as normal/abnormal. BILIRUBIN, TOTAL (test code = 1975-2) 0.8 MG/DL See_Comment [Automated message] The system which generated this result transmitted reference range: <=1.2 MG/DL. The reference range was not used to interpret this result as normal/abnormal. BUN (test code = 3094-0) 7 MG/DL See_Comment [Automated messa ge] The system which generated this result transmitted reference range: 6-20 MG/DL. The reference range was not used to interpret this result as normal/abnormal. CALCIUM (test code = 20257-1) 9.7 MG/DL See_Comment [Automated messa ge] The system which generated this result transmitted reference range: 8.5-10.5 MG/DL. The reference range was not used to interpret this result as normal/abnormal. CALC A/G RATIO (test code = 1759-0) 2.0 RATIO See_Comment [Automated messa ge] The system which generated this result transmitted reference range: 1.0-2.6 RATIO. The reference range was not used to interpret this result as normal/abnormal. CALC BUN/CREAT (test code = 3097-3) 9 RATIO See_Comment [Automated messa ge] The system which generated this result transmitted reference range: 6-28 RATIO. The reference range was not used to interpret this result as normal/abnormal. CALC GLOBULIN (test code = 10106-3) 2.4 G/DL See_Comment [Automated messa ge] The system which generated this result transmitted reference range: 1.9-3.7 G/DL. The reference range was not used to interpret this result as normal/abnormal. CARBON DIOXIDE (test code = 1963-8) 32 MEQ/L See_Comment H [Automated messa ge] The system which generated this result transmitted reference range: 19-31 MEQ/L. The reference range was not used to interpret this result as normal/abnormal. CHLORIDE (test code = 2075-0) 101 MEQ/L See_Comment [Automated messa ge] The system which generated this result transmitted reference range: 95-107 MEQ/L. The reference range was not used to interpret this result as normal/abnormal. CREATININE (test code = 2160-0) 0.81 MG/DL See_Comment [Automated messa ge] The system which generated this result transmitted reference range: 0.60-1.30 MG/DL. The reference range was not used to interpret this result as normal/abnormal. eGFR (2020 CKD-EPI) (test code = 71486-5) 86 ML/MIN/1.73 See_Comment [Automated messa ge] The system which generated this result transmitted reference range: >60 ML/MIN/1.73. The reference range was not used to interpret this result as normal/abnormal. GLUCOSE (test code = 1558-6) 105 MG/DL See_Comment H [Automated messa ge] The system which generated this result transmitted reference range: 70-99 MG/DL. The reference range was not used to interpret this result as normal/abnormal. POTASSIUM (test code = 2823-3) 5.0 MEQ/L See_Comment [Automated messa ge] The system which generated this result transmitted reference range: 3.5-5.4 MEQ/L. The reference range was not used to interpret this result as normal/abnormal. PROTEIN, TOTAL (test code = 2885-2) 7.2 G/DL See_Comment [Automated messa ge] The system which generated this result transmitted reference range: 6.1-8.3 G/DL. The reference range was not used to interpret this result as normal/abnormal. AST (test code = 1920-8) 22 U/L See_Comment [Automated messa ge] The system which generated this result transmitted reference range: 9-40 U/L. The reference range was not used to interpret this result as normal/abnormal. ALT (test code = 1742-6) 20 U/L See_Comment [Automated messa ge] The system which generated this result transmitted reference range: 5-40 U/L. The reference range was not used to interpret this result as normal/abnormal. SODIUM (test code = 2951-2) 139 MEQ/L See_Comment [Automated messa ge] The system which generated this result transmitted reference range: 133-146 MEQ/L. The reference range was not used to interpret this result as normal/abnormal. Hemoglobin.gastrointestinal.lower [Presence] in Stool by [id number] 00:00:00* Test Item Value Reference Range Interpretation Comme nts occult bld, immunochem (test code = occult bld, immunochem) positive negative [facility], [facility] + HR [id number] 00:00:00* Test Item Value Reference Range Interpretation Comme nts LMP date: (test code = LMP date:) 04/29/2021 Pap, liquid-based (test code = Pap, liquid-based) nilm nilm source (liquid-based cytology): (test code = source (liquid-based cytology):) cervical (which includes endocervical) [facility] B[facility] W/CAD3D SCR JUAN BILAT W/CADSARS-COV 2 Antigen SARS-COV 2 AntigenSARS-COV 2 AntigenSARS-COV 2 Antigen
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
[2023-07-11 22:10] VITALS: BP 153/87; TEMP 98; O2SAT 99
== END ==
LOC: ER 19:55
DX: R07.89 Other chest pain (principal); F41.9 Anxiety disorder, unspecified
CPT/HCPCS: 71045; 99284